=== PATIENT | male | born 1965 | race Caucasian/White ===

== ENCOUNTER 2022-09-19 08:30 | Emergency (ER) | payer OTHER, SELFPAY ==
[2022-09-19 08:39] VITALS: BP 135/80; PULSE 68; RESP 16; TEMP 36.1; O2SAT 100
--- NOTE | 2022-09-19 08:41 | ED.URI ---
HPI - URI/Sore Throat General Chief Complaint: Upper Respiratory Infection Stated Complaint: cold/flu sx Time Seen by Provider: 09/19/22 08:43 Source: patient, RN notes reviewed and old records reviewed Mode of arrival: ambulatory Limitations: no limitations History of Present Illness HPI Narrative: 57-year-old male presents to the [facility] with cough and cold symptoms. Patient states he has had intermittent cough for 1 month that has gotten worse over the last 4 days. Reports generalized body aches and fever. Denies any pain. Reports vaccine against COVID. MD elicited complaint: cough Related Data Allergies Allergy/AdvReac Type Severity Reaction Status Date / Time lisinopril AdvReac Mild cough Verified 08/29/22 07:49 Review of Systems Review of Systems: All systems reviewed & are unremarkable except as noted in HPI and below Constitutional: Constitutional: Reports no additional constitutional complaints Eyes: Eyes: Reports no additional eye complaints ENT: Reports system reviewed and no additional complaints, except as documented Cardiovascular: Cardiovascular: Reports no additional cardiovascular complaints, Denies chest pain and Denies dyspnea Respiratory: Respiratory: Reports as per HPI, Denies chest congestion, Reports cough and Denies dyspnea Gastrointestinal: Gastrointestinal: Reports no additional gastrointestinal complaints, Denies abdominal pain, Denies nausea and Denies vomiting Musculoskeletal: Musculoskeletal: Reports no additional musculoskeletal complaints Integumentary/Breasts: Skin/Breast: Reports system reviewed and no additional complaints, except as docu Neurologic: Reports system reviewed and no additional complaints, except as documented Psychiatric: Psychiatric: Reports no additional psychiatric complaints Allergic/Immunologic: Allergic/Immunologic: Reports no additional allergic/immunologic complaints [facility] Past Medical History Medical History Erectile dysfunction Obstructive sleep apnea Pure hyperglyceridemia Surgical History Surgical History Hx of inguinal hernia surgery Family History Family History Father Family history of Parkinson's disease Mother Family history of lung cancer Cerebrovascular accident Grandparent Family history of lung cancer Grandparent Family history of lung cancer Son Hypertension Social History Social History Smoking status: Never smoker Second hand tobacco smoke exposure: No Alcohol intake: current Drinks per week: 7 Substance use: never Substance use type: does not use Gender identity (if verbalized by the patient): Male Sexual Orientation (if Verbalized by the Patient): Straight or Heterosexual Spiritual care concerns: No Agree to blood products: Yes Comments At the time of my signature, I reviewed and agree with the nursing past medical, surgical, social, and family history. There is no relevant family history pertinent to the patient complaint. Exam Const: General: cooperative, healthy appearing, comfortable, no acute distress, well developed, alert, average body habitus and well nourished Nutritional Appearance: average body habitus and well nourished Orientation/consciousness: patient oriented x3 Limitations: no limitations HENMT: Head: normal to inspection Ears: hearing grossly normal bilaterally and external ears normal Face/Nose/Sinus: Normal external nose present, Normal nares present, Normal nasal mucous membranes and turbinates present and normal facial exam Face and sinus: normal facial exam Mouth: Yes Normal oral and palatal mucosa present, Yes lip normal and Yes moist mucous membranes Throat: posterior oropharynx normal and uvula midline Eyes: General: appearance normal, both e
== END 2022-09-19 09:03 | disposition home or self-care (01) ==
PROVIDERS: Emergency Provider Nurse Practitioner; PCP Family Medicine Adolescent Medicine
DX: J40 Bronchitis, not specified as acute or chronic (principal); E78.1 Pure hyperglyceridemia
CPT/HCPCS: 99213; G0463

== ENCOUNTER 2023-03-23 08:26 | Emergency (ER) | payer OTHER, SELFPAY ==
[2023-03-23 08:36] VITALS: BP 141/72; PULSE 60; RESP 12; TEMP 36.4; O2SAT 100
--- NOTE | 2023-03-23 08:47 | ED.EAR ---
HPI - Ear Problem General Chief complaint: Ear Stated complaint: Right Ear Irritation Time Seen by Provider: 03/23/23 08:40 Source: patient Mode of arrival: ambulatory Limitations: no limitations History of Present Illness HPI Narrative: Demarcus is a 57-year-old male patient presenting to the clinic today with complaints of right ear pain. He reports symptoms really began over the last 1-2 days. States he has recently been [place]orkeling in the ocean. Has tried vinegar solution in his ear prior to coming home on the plane and this helped some however symptoms are persistent. Related Data Allergies Allergy/AdvReac Type Severity Reaction Status Date / Time lisinopril AdvReac Mild cough Verified 03/23/23 08:28 Review of Systems Review of Systems: Pertinent positives per HPI. Patient denies any fever, chills, rash, headache, visual changes, dizziness, cough, runny nose, sore throat, shortness of breath, chest pain, palpitations, nausea, vomiting, diarrhea, constipation, abdominal pain, or any urinary issues. [facility] Past Medical History Medical History Erectile dysfunction Obstructive sleep apnea (2008) Surgical History Surgical History Hx of inguinal hernia surgery Family History Family History Father Family history of Parkinson's disease Mother Family history of lung cancer Cerebrovascular accident Grandparent Family history of lung cancer Grandparent Family history of lung cancer Son Hypertension Social History Social History Smoking status: Never smoker Second hand tobacco smoke exposure: No Alcohol intake: current Drinks per week: 7 Substance use: never Substance use type: does not use Living arrangements: alone Occupation/Education: occupation Gender identity (if verbalized by the patient): Male Sexual Orientation (if Verbalized by the Patient): Straight or Heterosexual Spiritual care concerns: No Agree to blood products: Yes Comments At the time of my signature, I reviewed and agree with the nursing past medical, surgical, social, and family history. There is no relevant family history pertinent to the patient complaint. Exam Narrative: General: Well-developed, well nourished, in no apparent distress Head: Normocephalic, atraumatic Eyes: Pupils equally round and reactive to light bilaterally, EOM intact, sclera and conjunctive clear, no discharge, lids normal Ears: TMs intact and clear, left ear canal clear, no drainage, right ear canal red and swollen with white exudate, tender to palpation of the tragus and pulling of the pinna, grossly hearing normal. Nose: Nares patent, no discharge, no inflammation, no sinus tenderness. Mouth: Oropharynx without lesions or masses, good dentition, MMM. Neck: Supple, trachea midline, no enlargement of anterior or posterior cervical nodes, no thyroid masses or goiter palpable. Cardio: Regular rate and rhythm, s1 and s2 normal, no murmur appreciated. Resp: Clear to auscultation bilaterally anteriorly and posteriorly, no rhonchi, rales, wheezing or rubs Course Course Emergency Course: Portions of this record may have been created with voice recognition software. Level of Care: Express Care Visit Vital Signs Vital signs: Vital Signs Temperature 36.4 C 03/23/23 08:36 Pulse Rate 60 03/23/23 08:36 Respiratory Rate 12 03/23/23 08:36 Blood Pressure 141/72 H 03/23/23 08:36 Pulse Oximetry 100 03/23/23 08:36 Oxygen Delivery Room Air 03/23/23 08:36 Temperature 36.4 C 03/23/23 08:36 Pulse Rate 60 03/23/23 08:36 Respiratory Rate 12 03/23/23 08:36 Blood Pressure 141/72 H 03/23/23 08:36 Pulse Oximetry 100 03/23/23 08:36 Oxygen Delivery Room Air
== END 2023-03-23 08:55 | disposition home or self-care (01) ==
PROVIDERS: Emergency Provider Nurse Practitioner Family; PCP Family Medicine Adolescent Medicine
DX: H60.91 Unspecified otitis externa, right ear (principal)
CPT/HCPCS: 99213; G0463

== ENCOUNTER 2023-10-12 07:23 | Emergency (ER) | payer OTHER, SELFPAY ==
[2023-10-12] VITALS (10 sets, daily range): BP systolic 132–168; BP diastolic 67–98; PULSE 65–80; RESP 16–18; TEMP 36.4–36.7; O2SAT 98–100
--- NOTE | ~2023-10-12 | CT_ITS ---
EXAMINATION: CT brain wo con DATE: 10/12/2023 09:51 INDICATION: Vertigo. TECHNIQUE: Computed tomography (CT) of the head was performed without intravenous contrast. The mA wa s adjusted according to patient size. Iterative reconstruction technique was employed. The dose-lengt h product was 605.33 mGy-cm. COMPARISON: None FINDINGS: There is no intracranial hemorrhage, acute infarction, or abnormal intracranial mass lesion . The ventricles are normal in size. The orbits are normal. There is mild mucosal thickening in the p aranasal sinuses. The mastoid air cells are normal. IMPRESSION: 1. Normal brain. Reviewed, dictated and finalized at location A. [employer] IMPRESSION: 1. Normal brain.
--- NOTE | 2023-10-12 07:29 | ECG_ITS ---
Measurements Intervals [place] Rate: 70 P: 0 GA: 171 QRS: -5 QRSD: 105 T: 16 QT: 386 QTc: 418 Interpretive Statements SINUS RHYTHM NO PREVIOUS ECG AVAILABLE FOR COMPARISON Electronically Signed On 10-12-2023 15:11:57 RADIOLOGIST by Beth Cain M.D.
--- NOTE | 2023-10-12 08:01 | ED.DIZZY ---
HPI - Dizziness General Chief Complaint: Dizziness Stated Complaint: ear issue/vertigo Time Seen by Provider: 10/12/23 07:33 History of Present Illness HPI Narrative: 58-year-old male presenting to the emergency department for evaluation of dizziness that started last night. Patient states that he did not drink very much water yesterday did have some alcohol and does have a previously diagnosed retracted right eardrum. Patient states that over the course of the night he had increased nausea did have a couple of episodes of dizziness and he woke up this morning he felt his equilibrium was off. Related Data Allergies Allergy/AdvReac Type Severity Reaction Status Date / Time lisinopril AdvReac Mild cough Verified 10/08/23 14:39 Review of Systems Review of Systems: All systems reviewed & are unremarkable except as noted in HPI and below PMFSH Past Medical History Medical History Erectile dysfunction Obstructive sleep apnea (2008) Surgical History Surgical History Hx of inguinal hernia surgery Family History Family History Father Family history of Parkinson's disease Mother Family history of lung cancer Cerebrovascular accident Grandparent Family history of lung cancer Grandparent Family history of lung cancer Son Hypertension Social History Social History Smoking status: Never smoker Second hand tobacco smoke exposure: No Alcohol intake: current Drinks per week: 7 Substance use: never Substance use type: does not use Do You Feel Safe in your Home?: Yes Lack of Transportation: No Lack of Food: Never True Current Housing: I Have Housing Concerned About Future Housing: No Difficulty Paying Gas/Electric Bills: No Difficulty Paying for Meds: No Currently Unemployed: No Education: Associate Degree Difficulty w/ Childcare or Family Care: No Living arrangements: alone Occupation/Education: occupation Gender identity (if verbalized by the patient): Male Sexual Orientation (if Verbalized by the Patient): Straight or Heterosexual Spiritual care concerns: No Agree to blood products: Yes Exam Narrative: APPEARANCE: Well appearing, no pain, no distress, well-nourished. HEAD: normocephalic, atraumatic. EYES: PERRLA/EOMI, conjunctivae clear. NOSE: Normal no drainage EARS: Mild right TM erythema THROAT: Pharynx clear, no exudate. NECK: Supple. No adenopathy, no masses. RESPIRATORY: Airway patent, respirations nonlabored. Clear to auscultation bilaterally, no rales, rhonchi, wheezing. CARDIOVASCULAR: Regular rate and rhythm without murmurs rubs or gallops. ABDOMINAL: Soft, nontender, nondistended, normal bowel sounds MUSCULOSKELETAL: Moves all extremities. Strength/ROM intact, No edema, No calf tenderness. NEURO: Alert. Cranial nerves II through XII intact. Grossly intact SKIN: Warm, dry. Normal Color Course Course Emergency Course: 58-year-old male presenting to the emergency department for evaluation of dehydration and vertigo. Patient was afebrile with no leukocytosis and a stable hemoglobin of 14.2. No significant abnormalities on the patient's CMP. Patient was negative for influenza RSV and COVID. Head CT showed no acute intracranial abnormality. Patient was treated with meclizine and had minimal improvement but he was treated with additional IV fluids and a dose of Valium the patient does feel improved. Patient was able to ambulate at his baseline. Patient will be provided follow-up with ENT and meclizine for p.r.n. vertigo. Patient and family are updated on the results of the workup and plan for treatment. All concerns were addressed patient was comfortable with the plan for discharge and close follow-up. Vital Signs Vital signs:
[2023-10-12] MEDS: MECLIZINE HCL 25 MG TABLET PO (08:15)
[2023-10-12] MEDS: SODIUM CHLORIDE 0.9% IV 1,000 ML 999 ML IV CONT ×2 (08:22→10:33)
--- NOTE | 2023-10-12 08:25 | PC.NURSE ---
c/o nausea, ERP notified, VO given
[2023-10-12 08:28] LABS: Basophils Percent Auto 0.5 % (0.2-1.2); Eosinophils Percent Auto 0.2 % (0-4.4); Hematocrit 42.1 % (42.0-52.0); Hemoglobin 14.2 g/dL (14.0-18.0); Immature Granulocyte Absolute 0.02 K/mm3 (0.00-0.031); Immature Granulocyte Percent A 0.3 % (0-0.5); Lymphocytes Absolute Auto 0.68 K/mm3 (0.9-3.2); Lymphocytes Percent Auto 10.6 % (18.3-44.2); Mean Corpuscular HGB Conc 33.7 g/dl (32-36); Mean Corpuscular Hemoglobin 30.5 pg (26-34); Mean Corpuscular Volume 90.5 fl (80-100); Mean Platelet Volume 10.7 fl (7.4-10.4); Monocytes Absolute Auto 0.2 K/mm3 (0.1-0.6); Monocytes Percent Auto 3.7 % (2.6-8.5); Neutrophils Absolute Auto 5.5 K/mm3 (1.3-6.7); Neutrophils Percent Auto 84.7 % (45.5-73.1); Platelet Count Result 148 k/mm3 (150-375); Red Blood Count 4.65 M/mm3 (4.6-6.20); Red Cell Distribution Width 12.5 % (11.5-14.5); White Blood Count 6.4 K/mm3 (4.5-10.0)
[2023-10-12] MEDS: METOCLOPRAMIDE HCL INJ 10 MG/2 ML VIAL IV PUSH (08:30)
[2023-10-12 08:41] LABS: Alanine Aminotransferase 22 U/L (6-50); Albumin Level 4.3 g/dL (3.5-5.1); Alkaline Phosphatase 44 U/L (38-126); Anion Gap 9 mmol/L (8-16); Aspartate Amino Transferase 22 U/L (17-59); Bilirubin,Total 0.7 mg/dL (0.2-1.3); Blood Urea Nitrogen 13 mg/dL (9-20); Calcium 9.5 mg/dL (8.4-10.2); Carbon Dioxide 26 mmol/L (22-30); Chloride 104 mmol/L (98-107); Estimated CRCL calculation 67 ml/min; Estimated Glomerular Filt Rate > 60; Glucose 115 mg/dL (65-110); Potassium 4.4 mmol/L (3.4-5.0); Sodium 139 mmol/L (137-145)
[2023-10-12 09:03] LABS: Influenza A QL RT-PCR Negative (Negative); Influenza B QL RT-PCR Negative (Negative); RSV RNA, RT-PCR Negative (Negative); SARS-CoV-2 RNA PCR Negative (Negative)
[2023-10-12] MEDS: diazePAM (*CRX) 5 MG TABLET PO (10:34)
== END 2023-10-12 11:31 | disposition home or self-care (01) ==
PROVIDERS: Emergency Provider Emergency Medicine; PCP Family Medicine Adolescent Medicine
DX: R42 Dizziness and giddiness (principal); Z20.822 Contact with and (suspected) exposure to COVID-19; G47.30 Sleep apnea, unspecified
CPT/HCPCS: 36415; 70450; 80053; 85025; 87637; 93005; 96361; 96374; 99284; A9270; J2765; J7030

== ENCOUNTER 2023-12-30 11:42 | Outpatient (CLI) | payer OTHER, SELFPAY | END 2023-12-30 11:43 | disposition home or self-care (01) | LOC: ANHAUDIO 11:44 | PROVIDERS: PCP Family Medicine Adolescent Medicine; Visit Provider Otolaryngology | DX: H81.01 Meniere's disease, right ear (principal) | CPT/HCPCS: 92557; 92567 ==

== ENCOUNTER 2024-05-25 11:07 | Outpatient (CLI) | payer OTHER, SELFPAY ==
--- NOTE | ~2024-05-25 | US_ITS ---
EXAMINATION: US thyroid DATE: 05/25/2024 11:31 INDICATION: Right thyroid nodule. TECHNIQUE: Multiple ultrasound images of the thyroid were obtained. COMPARISON: None. FINDINGS: The right thyroid lobe measures 5.7 x 1.2 x 1.5 cm. The left thyroid lobe measures 5.7 x 1.8 x 1.5 c m. In the right thyroid lobe, there is an 18 mm mixed cystic and solid, hypoechoic, wider than tall nodule with smooth margin without echogenic foci (TI-RADS TR3). IMPRESSION: 1. Right thyroid nodule. Ultrasound-guided fine-needle aspiration is recommended. Reviewed, dictated and finalized at location A. IMPRESSION: 1. Right thyroid nodule. Ultrasound-guided fine-needle aspiration is recommende dLanre
== END 2024-05-25 11:08 ==
LOC: MICIMG 11:08
PROVIDERS: PCP Family Medicine Adolescent Medicine; Visit Provider Otolaryngology
DX: E04.1 Nontoxic single thyroid nodule (principal)
CPT/HCPCS: 76536

== ENCOUNTER 2024-07-14 12:14 | Outpatient (CLI) | payer OTHER, SELFPAY ==
--- NOTE | ~2024-07-14 | US_ITS ---
EXAMINATION: US FNA w image guidance DATE: 07/14/2024 13:16 INDICATION: 2 cm right thyroid mass TECHNIQUE: A time-out was performed to verify the patient's name, date of , and procedure to be performed . The procedure and its benefits and risks were discussed with the patient. Risks specifically discus sed included bleeding and infection. The patient understood the risks and agreed to proceed. The neck was prepped and draped in the usual sterile manner. 3 mL 1% lidocaine was used for local anesthesia . 6 passes were made with a 25G needle into the lesion. Appropriate needle location was documented with continuous sonographic guidance. A sterile bandage was applied. There were no immediate compli cations. FINDINGS: Grayscale ultrasound images demonstrate biopsy needles advanced into a 2.0 cm TI RADS 5 solid hypoech oic thyroid mass with echogenic foci at the junction of the thyroid isthmus and right thyroid lobe. IMPRESSION: 1. Successful ultrasound-guided fine needle aspiration of . Reviewed, dictated and finalized at location A.
== END 2024-07-14 12:15 | disposition home or self-care (01) ==
LOC: ANHIMG 12:17
PROVIDERS: PCP Family Medicine Adolescent Medicine; Visit Provider Otolaryngology
DX: H91.91 Unspecified hearing loss, right ear (principal); H81.01 Meniere's disease, right ear; E07.9 Disorder of thyroid, unspecified
CPT/HCPCS: 10005; 88172; 88173; 88305

== ENCOUNTER 2025-05-10 18:44 | Emergency (ER) | payer OTHER, SELFPAY ==
--- NOTE | ~2025-05-10 | XR_ITS ---
EXAMINATION: XR ribs RT 2V Exam Date/Time: 05/10/2025 19:00 CDT HISTORY: posterior rib pain Comparison: 06/11/2013. RESULT: Lines, tubes, and devices: None. Lungs and pleura: Visualized portions are clear. Cardiothymic silhouette: Visualized portions, unremarkable. Other: No acute osseous or upper abdominal finding. Degenerative changes in the spine and right shou lder. IMPRESSION: No acute finding in the right ribs. Reviewed, dictated and finalized at location K.
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
[2025-05-10 18:52] VITALS: BP 140/68; PULSE 76; RESP 16; TEMP 37.4; O2SAT 97
== END 2025-05-10 19:27 | disposition home or self-care (01) ==
PROVIDERS: Emergency Provider Nurse Practitioner Family; PCP Family Medicine Adolescent Medicine
DX: S29.012A Strain of muscle and tendon of back wall of thorax, initial encounter (principal); X50.0XXA Overexertion from strenuous movement or load, initial encounter; Y93.I9 Activity, other involving external motion
CPT/HCPCS: 71100; 99213; G0463